=== PATIENT | female | born 1940 | race Caucasian/White ===

== ENCOUNTER 2025-09-14 13:38 | Inpatient (IN) ==
[2025-09-14] MEDS: NALOXONE HCL 0.4 MG/ML VIAL IV ONE (13:58)
[2025-09-14] MEDS: 0.9 % SODIUM CHLORIDE 1,000 ML IV ONE ×2 (13:59→15:26)
[2025-09-14 14:14] LABS: Basophils # (Auto) 0.01 K/mcL (0.00-0.30); Basophils % (Auto) 0.1 % (0.0-2.0); Eosinophils # (Auto) 0 K/mcL (0.00-0.70); Eosinophils % (Auto) 0 % (0.0-7.0); Hematocrit 41.8 % (34.1-44.9); Hemoglobin 13.2 g/dL (11.2-15.7); Lymphocytes # (Auto) 0.81 K/mcL (1.50-4.80); Lymphocytes % (Auto) 11.1 % (15.5-49.0); Mean Corpuscular HGB Conc 31.6 g/dL (31.0-36.0); Monocytes # (Auto) 0.64 K/mcL (0.10-0.90); Monocytes % (Auto) 8.8 % (1.0-12.0); Neutrophils % (Auto) 79.7 % (38.0-78.0); Platelet Count 155 K/mcL (140-440); RBC 4.23 M/mcL (3.59-5.38); WBC 7.3 K/mcL (4.5-11.0)
[2025-09-14 15:03] LABS: Anion Gap 19.0 (8.0-16.0); Blood Urea Nitrogen 100 mg/dL (8-23); Calcium 9.8 mg/dL (8.6-10.4); Carbon Dioxide 27 mmol/L (22-30); Chloride 95 mmol/L (96-108); Glucose 996 mg/dL (70-105); Potassium 4.8 mmol/L (3.3-5.1); Sodium 141 mmol/L (133-145)
[2025-09-14] MEDS: INSULIN REGULAR, HUMAN 50 UNIT in 0.9 % SODIUM CHLORIDE 99.5 ML IV SCH ×2 (15:26→21:12)
[2025-09-14 15:47] LABS: Bacteria,Urine Mod /hpf (0); Bilirubin,Urine NEGATIVE (Negative); Color,Urine LT. YELLOW; Glucose,Urine (UA) >=1000 mg/dL (Negative); Ketones,Urine NEGATIVE (Negative); Leukocyte Esterase,Urine NEGATIVE /uL (Negative); PH,Urine 5.5 (5.0-9.0); Protein,Urine NEGATIVE (Negative); Specific Gravity,Urine <= 1.005 (1.000-1.035); Urobilinogen,Urine 0.2 mg/dL
[2025-09-14] MEDS: 0.45 % SODIUM CHLORIDE 1,000 ML IV SCH ×2 (16:14→18:30)
[2025-09-14] MEDS: cefTRIAXone 1 GM VIAL IV ONE (17:27)
[2025-09-14] MEDS: POTASSIUM CHLORIDE 20 MEQ in DEXTROSE 5% IN WATER 250 ML IV ONE (17:28)
[2025-09-14 17:56] LABS: Anion Gap 16.0 (8.0-16.0); Blood Urea Nitrogen 93 mg/dL (8-23); Calcium 8.8 mg/dL (8.6-10.4); Carbon Dioxide 25 mmol/L (22-30); Chloride 105 mmol/L (96-108); Glucose 725 mg/dL (70-105); Potassium 4.2 mmol/L (3.3-5.1); Sodium 146 mmol/L (133-145)
[2025-09-14] MEDS ORDERED: SENNOSIDES 1 TABLET PO PRN (18:31)
[2025-09-14] MEDS ORDERED: METOCLOPRAMIDE 10 MG/2 ML VIAL IV PRN (18:31)
[2025-09-14] MEDS ORDERED: MAGNESIUM SULFATE 2 GM/50 ML BAG IV PRN (18:31)
[2025-09-14] MEDS ORDERED: POLYETHYLENE GLYCOL 3350 17 GM PACKET PO PRN (18:31)
[2025-09-14] MEDS ORDERED: ONDANSETRON 4 MG/2 ML VIAL IV PRN (18:31)
[2025-09-14] MEDS ORDERED: POTASSIUM CHLORIDE 20 MEQ TABLET PO PRN ×2 (18:31)
[2025-09-14] MEDS ORDERED: POTASSIUM CHLORIDE 40 MEQ in DEXTROSE 5% IN WATER 500 ML IV PRN (18:31)
[2025-09-14] MEDS ORDERED: IPRATROPIUM/ALBUTEROL 3 ML AMPUL.NEB NEB PRN (18:31)
[2025-09-14] MEDS: DEXTROSE 5% IN WATER 250 ML IV SCH ×2 (19:57→22:26)
[2025-09-14] MEDS: 0.9 % SODIUM CHLORIDE 250 ML IV SCH (19:58)
[2025-09-14 20:06] LABS: Sodium 152 mmol/L (133-145)
[2025-09-14] MEDS: DOCUSATE SODIUM 100 MG CAPSULE PO SCH (20:10)
[2025-09-14] MEDS: INSULIN REGULAR, HUMAN 1 UNIT/0.01 ML UNIT ONE (21:13)
[2025-09-14] MEDS: HEPARIN 5,000 UNIT/ML VIAL SQ SCH (21:24)
[2025-09-15] MEDS: DEXTROSE 5%-1/2NS 1,000 ML IV SCH ×2 (01:01→19:25)
[2025-09-15] MEDS: INSULIN REGULAR, HUMAN 1 UNIT/0.01 ML UNIT ONE (04:07)
[2025-09-15 06:43] LABS: ALT/SGPT 13 U/L (<40); AST/SGOT 22 U/L (<32); Albumin 3.3 gm/dL (3.2-5.2); Albumin/Globulin Ratio 1.1 (1.0-2.3); Alkaline Phosphatase 74 U/L (39-117); Anion Gap 13.0 (8.0-16.0); Bilirubin,Direct < 0.2 mg/dL (0-0.3); Bilirubin,Total 0.2 mg/dL (0.1-1.0); Blood Urea Nitrogen 85 mg/dL (8-23); Calcium 8.5 mg/dL (8.6-10.4); Carbon Dioxide 25 mmol/L (22-30); Chloride 113 mmol/L (96-108); Globulin 3.0 gm/dL (2.2-3.7); Glucose 173 mg/dL (70-105); Phosphorous 2.4 mg/dL (2.5-4.5); Potassium 3.9 mmol/L (3.3-5.1); Sodium 151 mmol/L (133-145); Triglycerides 734 mg/dL (<150); Uric Acid 10.5 mg/dL (2.5-8.0)
[2025-09-15] MEDS ORDERED: METOPROLOL TARTRATE 5 MG/5 ML VIAL IV PRN (07:28)
[2025-09-15] MEDS: METOPROLOL TARTRATE 50 MG TABLET PO ONE (07:51)
[2025-09-15] MEDS: PANTOPRAZOLE 40 MG TABLET PO SCH (07:51)
[2025-09-15 07:57] LABS: Basophils # (Auto) 0.02 K/mcL (0.00-0.30); Basophils % (Auto) 0.2 % (0.0-2.0); Eosinophils # (Auto) 0.07 K/mcL (0.00-0.70); Eosinophils % (Auto) 0.8 % (0.0-7.0); Hematocrit 37.6 % (34.1-44.9); Hemoglobin 11.8 g/dL (11.2-15.7); Lymphocytes # (Auto) 1.28 K/mcL (1.50-4.80); Lymphocytes % (Auto) 14.9 % (15.5-49.0); Mean Corpuscular HGB Conc 31.4 g/dL (31.0-36.0); Monocytes # (Auto) 0.83 K/mcL (0.10-0.90); Monocytes % (Auto) 9.7 % (1.0-12.0); Neutrophils % (Auto) 74.0 % (38.0-78.0); Platelet Count 109 K/mcL (140-440); RBC 3.69 M/mcL (3.59-5.38); WBC 8.6 K/mcL (4.5-11.0)
[2025-09-15] MEDS: AMIODARONE 150 MG in DEXTROSE 5% IN WATER 50 ML IV ONE (09:18)
[2025-09-15 12:50] LABS: Sodium 146 mmol/L (133-145)
[2025-09-15] MEDS: cefTRIAXone 1 GM VIAL IV SCH (13:57)
[2025-09-15] MEDS: LEVOTHYROXINE SODIUM 175 MCG TABLET PO SCH (20:38)
[2025-09-15] MEDS: METOPROLOL TARTRATE 25 MG TABLET PO SCH (20:40)
[2025-09-15] MEDS: MEMANTINE 10 MG TABLET PO SCH (20:40)
[2025-09-15] MEDS: LEVOTHYROXINE 25 MCG TABLET PO SCH (20:40)
[2025-09-15] MEDS: DONEPEZIL 10 MG TABLET PO SCH (20:40)
[2025-09-15] MEDS: LEVOTHYROXINE 150 MCG TABLET PO SCH (20:40)
[2025-09-16 06:21] LABS: ALT/SGPT 15 U/L (<40); AST/SGOT 24 U/L (<32); Albumin 2.9 gm/dL (3.2-5.2); Albumin/Globulin Ratio 1.2 (1.0-2.3); Alkaline Phosphatase 66 U/L (39-117); Anion Gap 11.0 (8.0-16.0); Bilirubin,Direct < 0.2 mg/dL (0-0.3); Bilirubin,Total 0.3 mg/dL (0.1-1.0); Blood Urea Nitrogen 61 mg/dL (8-23); Calcium 7.6 mg/dL (8.6-10.4); Carbon Dioxide 25 mmol/L (22-30); Chloride 108 mmol/L (96-108); Globulin 2.5 gm/dL (2.2-3.7); Glucose 193 mg/dL (70-105); Phosphorous 2.2 mg/dL (2.5-4.5); Potassium 3.8 mmol/L (3.3-5.1); Sodium 144 mmol/L (133-145); Triglycerides 829 mg/dL (<150); Uric Acid 9.2 mg/dL (2.5-8.0)
[2025-09-16] MEDS ORDERED: DEXTROSE 31 GM ORAL.SUSP PO PRN (07:21)
[2025-09-16] MEDS ORDERED: DEXTROSE 50% 50 ML VIAL IV PRN (07:21)
[2025-09-16] MEDS: INSULIN GLARGINE, HUMAN 1 UNIT/0.01 ML SQ SCH (09:18)
[2025-09-16] MEDS: INSULIN LISPRO 1 UNIT/0.01 ML UNIT SQ SCH ×2 (09:32→16:48)
[2025-09-16] MEDS: ACETAMINOPHEN 325 MG TABLET PO PRN (09:37)
[2025-09-16 09:44] LABS: HDL Cholesterol 20 mg/dL (>40); Triglycerides 846 mg/dL (<150)
[2025-09-16] MEDS: EZETIMIBE 10 MG TABLET PO SCH (11:54)
[2025-09-16] MEDS: CARVEDILOL 12.5 MG TABLET PO SCH (17:06)
[2025-09-17 06:11] LABS: Anion Gap 10.0 (8.0-16.0); Blood Urea Nitrogen 42 mg/dL (8-23); Calcium 7.7 mg/dL (8.6-10.4); Carbon Dioxide 24 mmol/L (22-30); Chloride 104 mmol/L (96-108); Glucose 259 mg/dL (70-105); Potassium 4.0 mmol/L (3.3-5.1); Sodium 138 mmol/L (133-145)
[2025-09-17] MEDS: GLIMEPIRIDE 2 MG TABLET PO SCH (09:15)
[2025-09-17] MEDS: CLOPIDOGREL 75 MG TABLET PO SCH (09:15)
[2025-09-17] MEDS: INSULIN GLARGINE, HUMAN 1 UNIT/0.01 ML SQ ONE (10:27)
[2025-09-17] MEDS ORDERED: hydrALAZINE 20 MG/ML VIAL IV PRN (10:46)
[2025-09-18 05:50] LABS: Basophils # (Auto) 0.01 K/mcL (0.00-0.30); Basophils % (Auto) 0.2 % (0.0-2.0); Eosinophils # (Auto) 0.15 K/mcL (0.00-0.70); Eosinophils % (Auto) 2.4 % (0.0-7.0); Hematocrit 33.4 % (34.1-44.9); Hemoglobin 10.9 g/dL (11.2-15.7); Lymphocytes # (Auto) 1.27 K/mcL (1.50-4.80); Lymphocytes % (Auto) 20.7 % (15.5-49.0); Mean Corpuscular HGB Conc 32.6 g/dL (31.0-36.0); Monocytes # (Auto) 0.57 K/mcL (0.10-0.90); Monocytes % (Auto) 9.3 % (1.0-12.0); Neutrophils % (Auto) 65.6 % (38.0-78.0); Platelet Count 81 K/mcL (140-440); RBC 3.46 M/mcL (3.59-5.38); WBC 6.2 K/mcL (4.5-11.0)
[2025-09-18 06:11] LABS: Anion Gap 9.0 (8.0-16.0); Blood Urea Nitrogen 28 mg/dL (8-23); Calcium 7.9 mg/dL (8.6-10.4); Carbon Dioxide 24 mmol/L (22-30); Chloride 104 mmol/L (96-108); Glucose 179 mg/dL (70-105); Potassium 3.8 mmol/L (3.3-5.1); Sodium 137 mmol/L (133-145)
[2025-09-18] MEDS: INSULIN GLARGINE, HUMAN 1 UNIT/0.01 ML SQ SCH (08:02)
[2025-09-19 06:56] LABS: Anion Gap 10.0 (8.0-16.0); Blood Urea Nitrogen 21 mg/dL (8-23); Calcium 8.0 mg/dL (8.6-10.4); Carbon Dioxide 23 mmol/L (22-30); Chloride 104 mmol/L (96-108); Glucose 193 mg/dL (70-105); Potassium 4.1 mmol/L (3.3-5.1); Sodium 137 mmol/L (133-145)
[2025-09-19 06:59] LABS: Basophils # (Auto) 0.02 K/mcL (0.00-0.30); Basophils % (Auto) 0.3 % (0.0-2.0); Eosinophils # (Auto) 0.17 K/mcL (0.00-0.70); Eosinophils % (Auto) 2.9 % (0.0-7.0); Hematocrit 32.2 % (34.1-44.9); Hemoglobin 10.7 g/dL (11.2-15.7); Lymphocytes # (Auto) 1.37 K/mcL (1.50-4.80); Lymphocytes % (Auto) 23.2 % (15.5-49.0); Mean Corpuscular HGB Conc 33.2 g/dL (31.0-36.0); Monocytes # (Auto) 0.58 K/mcL (0.10-0.90); Monocytes % (Auto) 9.8 % (1.0-12.0); Neutrophils % (Auto) 59.7 % (38.0-78.0); Platelet Count 109 K/mcL (140-440); RBC 3.35 M/mcL (3.59-5.38); WBC 5.9 K/mcL (4.5-11.0)
== END 2025-09-19 13:40 | DRG 637 ==
LOC: ED 13:38 → ICU 18:12 → MEDSUR 09-17 12:29
PROVIDERS: ADMIT Internal Medicine; ATTEND Internal Medicine